=== PATIENT | female | born 1975 | race Caucasian/White ===

== ENCOUNTER 2017-10-06 08:01 | Outpatient (CLI) | payer BC ==
[2017-10-06 09:07] LABS: Bilirubin Negative (Negative); Blood, Urine Trace (Negative); Clarity Clear (Clear); Glucose, Urine (Dipstick) Negative (Negative); Leukocyte Negative (Negative); Nitrite Negative (Negative); Protein, Urine (Dipstick) Negative (Neg-Trace); Urobilinogen 0.2 mg/dL (0.2-1.0); pH, Urine 7.5 (5.0-9.0)
[2017-10-06 09:23] LABS: Anion Gap 14 mmol/L (10-20); BUN (Urea Nitrogen) 9 mg/dL (7.0-18.7); Calc. Creatinine Clearance 0 mL/min (70-130); Calcium 9.2 mg/dL (7.8-10.44); Carbon Dioxide 26 mmol/L (22-29); Chloride 104 mmol/L (98-107); Estimated GFR-MDRD 62; Glucose 90 mg/dL (70-105); Potassium 3.7 mmol/L (3.5-5.1); Sodium 140 mmol/L (136-145)
[2017-10-06 10:35] LABS: Bacteria/HPF None Seen HPF (None Seen); RBC/HPF 0-3 HPF (0-3); Squamous Epithelial None Seen HPF (0-3); WBC/HPF None Seen HPF (0-3)
--- NOTE | 2017-10-06 11:48 | ULT ---
RENAL ULTRASOUND: HISTORY: Chronic renal disease. The patient was diagnosed with hypertension. FINDINGS: Multiple longitudinal and transverse images of the kidneys and bladder are obtained using a multihert z curvilinear transducer. Real-time, color flow, and spectral waveform Doppler analysis was used to e valuate the kidneys and bladder. Images demonstrate both kidneys to be of normal contour, axis, ad size. Right kidney measures 11.6 a nd the left kidney 12.2 cm from pole to pole. No evidence of renal parenchymal mass is seen. Mild p rominence of the right renal pelvis is seen. This may represent an extrarenal pelvis. Both ureteral jets are visualized suggesting no evidence of hydronephrosis. Renal arteries demonstrate no significant evidence of renal artery stenosis. Resistive index in the right kidney measures 0.63 and the left kidney 0.70. The urinary bladder is unremarkable. IMPRESSION: No evidence of renal parenchymal lesions or significant evidence of hydronephrosis. POS: [facility]
[2017-10-06 14:38] LABS: ANA Symphony (Qualitative) Negative (Negative); dsDNA IgG Antibody Less than 0.5 IU/mL (<10 Negative)
== END 2017-10-06 08:02 | disposition home or self-care (01) ==
LOC: SCSULT 08:01
PROVIDERS: ATTEND Internal Medicine Nephrology
DX: N18.3 Chronic kidney disease, stage 3 (moderate) (principal)
CPT/HCPCS: 36415; 76700; 76770; 80048; 81001; 86038; 86225